=== PATIENT | male | born 1985 | race Two or more races ===

== ENCOUNTER 2020-12-13 11:26 | Emergency (ER) | payer SELFPAY ==
[2020-12-13] MEDS ORDERED: NAPROXEN500 MG PO (16:44)
[2020-12-13] MEDS ORDERED: NORCO 5-325 TA1 EACH PO (16:44)
== END 2020-12-13 17:36 | disposition home or self-care (01) ==
LOC: FER 11:26
DX: S40.211A Abrasion of right shoulder, initial encounter (principal); S20.411A Abrasion of right back wall of thorax, initial encounter; W20.8XXA Other cause of strike by thrown, projected or falling object, initial encounter; Y92.89 Other specified places as the place of occurrence of the external cause; Y99.0 Civilian activity done for income or pay
CPT/HCPCS: 73030; 90471; 90715